=== PATIENT | female | born 1945 | race Caucasian/White ===

== ENCOUNTER 2019-03-07 11:57 | Inpatient (IN) | payer MEDICARE ==
[~2019-03-07] VITALS: Ht 162.6 cm; Wt 47.2 kg
[~2019-03-07 11:57] MED LIST: ASPI81TA31 PO; SIMV20TA2 PO
[2019-03-07 13:26] LABS: BASOPHILS # (AUTO) 0.1 K/uL (0.0-8.0); BASOPHILS % (AUTO) 1.1 % (0.0-2.0); EOSINOPHILS # (AUTO) 0.1 K/uL (0.0-0.7); EOSINOPHILS % (AUTO) 0.9 % (0.0-7.0); HEMATOCRIT 33.5 % (31.2-41.9); HEMOGLOBIN 11.1 g/dL (10.9-14.3); LYMPHOCYTES # (AUTO) 1.3 K/uL (20.0-40.0); LYMPHOCYTES % (AUTO) 22.3 % (20.5-51.5); MEAN CORPUSCULAR HEMOGLOBIN 31.7 uug (24.7-32.8); MEAN CORPUSCULAR HGB CONC 33 g/dL (32.3-35.6); MEAN CORPUSCULAR VOLUME 95.4 fL (75.5-95.3); MONOCYTES # (AUTO) 0.5 K/uL (2.0-10.0); MONOCYTES % (AUTO) 8.5 % (0.0-11.0); NEUTROPHILS # (AUTO) 3.8 K/uL (1.8-8.9); NEUTROPHILS % (AUTO) 67.2 % (38.5-71.5); PLATELET COUNT (AUTO) 295 K/uL (179-408); RED BLOOD CELL COUNT(AUTO) 3.51 MIL/uL (3.63-4.92); WHITE BLOOD COUNT (AUTO) 5.7 K/uL (3.8-11.8)
[2019-03-07 13:36] LABS: *BILIRUBIN,URIN NEGATIVE (NEGATIVE); *CLARITY,URINE CLEAR (CLEAR); *COLOR,URINE YELLOW (YELLOW); *KETONES,URINE NEGATIVE (NEGATIVE); *UROBILINOGEN,URINE 0.2 E.U./dl (NORMAL); LEUKOCYTE ESTERASE ,URINE NEGATIVE (NEGATIVE); NITRITE, URINE NEGATIVE (NEGATIVE); PH,URINE 6.5 (5.0-8.0); UGLUCOSE NEGATIVE (NEGATIVE)
[2019-03-07 13:36] LABS: CREATININE 0.9 mg/dL (0.6-1.3); POTASSIUM 3.9 mmol/L (3.5-5.1)
[2019-03-07 13:38] LABS: *BLOOD, URINE TRACE (NEGATIVE)
[2019-03-07 13:41] LABS: BILIRUBIN,DIRECT 0.1 mg/dL (0.0-0.2); BILIRUBIN,TOTAL 0.4 mg/dL (0.2-1.0); TOTAL PROTEIN, SERUM 6.6 g/dL (6.4-8.2)
[2019-03-07 13:45] LABS: BACTERIA,URINE FEW /HPF (NONE SEEN); SQUAMOUS EPITHELIAL CELL,UR FEW /HPF (NONE SEEN); WBC,URINE 0-3 /HPF (0-3)
[2019-03-07 13:46] LABS: RBC,URINE 0-3 /HPF (0-3)
[2019-03-07] MEDS ORDERED: CHOL200078 PO (15:25)
[2019-03-07] MEDS ORDERED: OLAP150T PO (15:25)
[2019-03-07] MEDS ORDERED: PHAZYME PO (15:25)
[2019-03-07] MEDS ORDERED: MULT1TAB73 PO (15:25)
[2019-03-07] MEDS ORDERED: DOCU-141 PO (15:25)
[2019-03-07] MEDS ORDERED: BIOT10005 PO (15:25)
[2019-03-07 16:27] VITALS: BP 121/67
[2019-03-07] MEDS ORDERED: ZOLPIDEM 5 MG TABLET PO PRN (17:30)
[2019-03-07] MEDS ORDERED: HYDROCODONE/APAP 5-325MG TABLET PO PRN (17:30)
[2019-03-07] MEDS ORDERED: ONDANSETRON 4 MG/2 ML VIAL IV PRN (17:30)
[2019-03-07] MEDS ORDERED: ACETAMINOPHEN 325 MG TABLET PO PRN (17:30)
[2019-03-07 19:00] VITALS: BP_SYST 135; BP_SYST 136; BP_DIAS 70; BP_DIAS 74; BP_DIAS 78
[2019-03-07 20:24] VITALS: BP 126/58
[2019-03-08 00:10] VITALS: BP 123/61
[2019-03-08 04:00] VITALS: BP 122/70
[2019-03-08 08:36] LABS: BASOPHILS % (AUTO) 1.2 % (0.0-2.0); EOSINOPHILS # (AUTO) 0.1 K/uL (0.0-0.7); EOSINOPHILS % (AUTO) 2.5 % (0.0-7.0); HEMATOCRIT 32.7 % (31.2-41.9); HEMOGLOBIN 10.9 g/dL (10.9-14.3); LYMPHOCYTES # (AUTO) 1.9 K/uL (20.0-40.0); LYMPHOCYTES % (AUTO) 48.2 % (20.5-51.5); MEAN CORPUSCULAR HEMOGLOBIN 31.6 uug (24.7-32.8); MEAN CORPUSCULAR HGB CONC 33 g/dL (32.3-35.6); MEAN CORPUSCULAR VOLUME 95.2 fL (75.5-95.3); MONOCYTES # (AUTO) 0.3 K/uL (2.0-10.0); NEUTROPHILS # (AUTO) 1.5 K/uL (1.8-8.9); NEUTROPHILS % (AUTO) 39.1 % (38.5-71.5); PLATELET COUNT (AUTO) 296 K/uL (179-408); RED BLOOD CELL COUNT(AUTO) 3.43 MIL/uL (3.63-4.92); WHITE BLOOD COUNT (AUTO) 3.9 K/uL (3.8-11.8)
[2019-03-08 09:00] LABS: CARBON DIOXIDE 31 mmol/L (21-32); CHLORIDE 103 mmol/L (98-107); CHOLESTEROL 221 mg/dL (<200); CREATININE 0.7 mg/dL (0.6-1.3); GLUCOSE 100 mg/dL (74-106); HDL CHOLESTEROL 72 mg/dL (40-60); MAGNESIUM 1.9 mg/dL (1.8-2.4); PHOSPHOROUS 3.5 mg/dL (2.5-4.9); POTASSIUM 3.8 mmol/L (3.5-5.1); TRIGLYCERIDES 97 MG/DL (30-150); UREA NITROGEN, BLOOD 12 mg/dL (7-18)
[2019-03-08 09:15] VITALS: BP_SYST 108; BP_SYST 109; BP_SYST 118; BP_DIAS 58; BP_DIAS 67; BP_DIAS 68
[2019-03-08 11:30] VITALS: BP 99/52
[2019-03-08] MEDS ORDERED: IV NORMAL SALINE 500 ML IV ONE (14:00)
[2019-03-08] MEDS: IV NS 1000 ML 1,000 ML IV PRN (15:18)
[2019-03-08 15:47] VITALS: BP 108/60
[2019-03-08 20:00] VITALS: BP 123/64
[2019-03-09] VITALS: BP 126/57
[2019-03-09 04:00] VITALS: BP 149/71
[2019-03-09] MEDS: IV NS 1000 ML 1,000 ML IV PRN (04:24)
[2019-03-09 11:32] VITALS: BP 129/64
== END 2019-03-09 14:25 | disposition home or self-care (01) | DRG 312 ==
LOC: ER 12:01 → TELE3 15:46
PROVIDERS: ADMIT Nurse Practitioner Acute Care; ATTEND Nurse Practitioner Acute Care
DX: R55 Syncope and collapse (principal); C56.9 Malignant neoplasm of unspecified ovary; T45.1X5A Adverse effect of antineoplastic and immunosuppressive drugs, initial encounter; S00.12XA Contusion of left eyelid and periocular area, initial encounter; W18.30XA Fall on same level, unspecified, initial encounter; Y92.89 Other specified places as the place of occurrence of the external cause; R11.0 Nausea; J30.9 Allergic rhinitis, unspecified; C50.919 Malignant neoplasm of unspecified site of unspecified female breast; Z88.0 Allergy status to penicillin; K59.09 Other constipation
CPT/HCPCS: 36415; 70030-TC; 70450; 71045; 83735; 84100; 85025; 85730; 87086; 93005; 93307; A4663; G0378; J7030; J7040